=== PATIENT | female | born 1945 | race Caucasian/White ===

== ENCOUNTER → 2017-06-15 | Outpatient (CLI) | payer OTHER, BC ==
[2017-06-15 16:14] LABS: CALCIUM 8.7 mg/dL (8.5-10.1); CREATININE 0.7 mg/dL (0.6-1.0); POTASSIUM 3.2 mmol/L (3.5-5.1)
[2017-06-15 16:25] LABS: ALBUMIN 3.2 g/dL (3.4-5.0); TOTAL BILIRUBIN 0.4 mg/dL (<0.1-1.0)
== END ==
LOC: RAD 15:28
PROVIDERS: Internal Medicine
DX: M41.85 Other forms of scoliosis, thoracolumbar region (principal); R06.00 Dyspnea, unspecified

== ENCOUNTER → 2018-11-22 | Outpatient (CLI) | payer OTHER, BC | LOC: RAD 11:18 | DX: D71 Functional disorders of polymorphonuclear neutrophils (principal); M41.86 Other forms of scoliosis, lumbar region ==

== ENCOUNTER → 2020-04-02 | Outpatient (CLI) | payer OTHER, BC | LOC: RAD 08:26 | PROVIDERS: ATTEND Internal Medicine | DX: J84.10 Pulmonary fibrosis, unspecified (principal); D86.9 Sarcoidosis, unspecified; M41.84 Other forms of scoliosis, thoracic region ==